=== PATIENT | female | born 1975 | race Asian ===

== ENCOUNTER → 2019-02-10 | Outpatient (CLI) | payer OTHER ==
[~2019-02-10] MED LIST: KEFLEX500 MG PO; ULTRAM 50MG TAB50 MG PO
[2019-02-10 15:26] LABS: ABSOLUTE NEUTROPHILS 6.3 thou/uL (1.4-8.2); BASOPHILS 0.7 % (0.0-2.0); EOSINOPHILS 0.1 % (0.0-3.0); HEMOGLOBIN 14.7 gm/dL (12.0-15.0); LYMPHOCYTES 16.6 % (24.0-44.0); MCH 30.1 pg (26.0-34.0); MCHC 34.2 g/dL (28.0-37.0); MCV 87.9 fL (80.0-100.0); MONOCYTES 3.5 % (1.0-8.0); PLATELET COUNT 211 thou/uL (150-400); POLYS 79.1 % (36.0-66.0); RDW 13.2 % (10.5-14.5); WBC 7.9 thou/uL (4.0-11.0)
[2019-02-10 15:50] LABS: ALBUMIN 4.4 g/dL (3.4-5.0); ANION GAP 8 mmol/L (7-16); BUN 9 mg/dL (7-18); CALCIUM 9.3 mg/dL (8.5-10.1); CHLORIDE 101 mmol/L (98-107); CHOLESTEROL 212 mg/dL (<200); CO2 30 mmol/L (21-32); CREATININE 0.6 mg/dL (0.6-1.0); GLUCOSE 91 mg/dL (74-106); HDL CHOLESTEROL 66 mg/dL (>40); LDL CHOLESTEROL 137 mg/dL (<100); POTASSIUM 3.9 mmol/L (3.5-5.1); SERUM ASSESSMENT Clear; SGOT 13 U/L (15-37); SGPT 14 U/L (30-65); SODIUM 139 mmol/L (136-145); TC:HDL 3.2 Ratio (Not establshd); TOTAL BILIRUBIN 0.7 mg/dL (<0.1-1.0); TRIGLYCERIDE 46 mg/dL (<150); VLDL 9 mg/dL (<40)
== END ==
LOC: RAD 11:45
PROVIDERS: Family Medicine
DX: Z00.00 Encounter for general adult medical examination without abnormal findings (principal); J30.2 Other seasonal allergic rhinitis

== ENCOUNTER → 2021-04-25 | Outpatient (CLI) | payer OTHER | LOC: ULTRA 11:07 | PROVIDERS: ATTEND Nurse Practitioner | DX: N84.0 Polyp of corpus uteri (principal); R10.13 Epigastric pain ==

== ENCOUNTER → 2021-06-12 | Outpatient (CLI) | payer OTHER | LOC: BC 13:01 | PROVIDERS: ATTEND Obstetrics & Gynecology | DX: Z12.31 Encounter for screening mammogram for malignant neoplasm of breast (principal) ==